=== PATIENT | female | born 1990 | race Caucasian/White ===

== ENCOUNTER 2016-11-05 12:36 | Emergency (ER) | payer MEDICAID, OTHER ==
[~2016-11-05 12:36] MED LIST: PREN1CAP PO
--- NOTE | 2016-11-05 14:15 | PD ---
HPI Chief Complaint Abdominal pain Date Seen: November 05, 2016 Time Seen: 14:00 (Timbo Ansari MD R1) Travel History International Travel<30 Days: No Contact w/Intl Traveler<30Days: No Known Affected Area: No (Timbo Asnari MD R1) History of Present Illness HPI Patient is a 26-year-old at 19 weeks and 2 days who presents with abdominal pain. She reports that she was moving a dresser yesterday. She endorses lifting with her arms and twisting her back. She reports that the pain is in her right upper quadrant, under her ribs. She describes the pain as sharp , coming and going. She reports that the pain is worse with movement, better with lying down, sitting, relaxing. She describes that the pain seems to wrap around to her back within the past few hours. She denies any contractions, leakage of fluid, vaginal bleeding, vaginal discharge. She reports that she hasn 't felt any movement since yesterday, that is normal for her to only feel intermittently as she is so early in her . Since last night, she has had some cold sweats on and off and some vomiting. She describes the vomit is nonbilious nonbloody, transitioning from yellow to white to dry heaving. She reports 5 episodes of vomiting today with associated nausea, associated with the abdominal pain. She reports trying to stay well hydrated today. Patient denies any lower extremity edema, fevers, blurry vision, chest pain, shortness of breath. She denies any dysuria or STDs. She does endorse a headache every day. She reports that she got headaches every day with her last . She also reports occasional presyncope. Her last was a full -term for preeclampsia. Patient gets her care with Elena Beltran. Para: 1 : 2 (Timbo Ansari MD R1) History Past Medical History Narrative Medical Patient reports a history of hypoglycemia with associated syncope prior to getting (Timbo Ansari MD R1) Obstetric History Obstetric History Patient reports that her previous was full term for preeclampsia. (Timbo Ansari MD R1) Past Surgical History Narrative Surgical Patient reports tonsillectomy as a child. (Timbo Ansari MD R1) Family History Narrative Family History Patient reports that her mother was diagnosed with breast cancer at 49 years old. She is currently status post bilateral mastectomy 52 years old. Diabetes in her grandmother. (Timbo Ansari MD R1) Social History Narrative Social History Patient lives at home with and daughter. Alcohol Use: No Tobacco Use: No Substance Abuse: No (Timbo Ansari MD R1) Allergies-Medications (Allergen,Severity, Reaction): Coded Allergies: Lamictal (Verified Allergy, Severe, lesley leonora syndrome, 09/09/16) Morphine (Verified Allergy, Severe, throat swells, 09/09/16) Home Meds Active Scripts Without A W/ Fe Asp G ([facility] 30-1-470 mg)1 Cap Cap1 Tab PO DAILY # 30 BOTTLE Ref 11 Prov:Jaclyn Beltran 09/09/16 Without A W/ Fe Asp G ([facility] 30-1-470 mg)1 Cap Cap Sample #2 Prov:Lawson Luque MD 09/09/16 Review of Systems General / Constitutional: Chills, No: Fever Eyes: No: Blurred Vision HENT: Headaches Cardiovascular: No: Chest Pain or Discomfort, Edema Respiratory: No: Short of Breath Gastrointestinal: Nausea, Vomiting, Abdominal Pain, No: Diarrhea Genitourinary: No: Dysuria Skin: No Rash Neurologic: No: Headache (Timbo Ansari MD R1) Physical Exam Narrative GENERAL: Well-nourished, well-developed patient. SKIN: Warm and dry. HEAD: Normocephalic and atraumatic. EYES: No scleral icterus. No injection or drainage. ENT: No nasal drainage noted. Mucous membranes pink. Airway patent. NECK: Supple, trachea midline. No JVD. CARDIOVASCULAR: Regular rate and rhythm without murmurs, gallops, or rubs. RESPIRATORY: Breath sounds equal bilaterally. No accessory muscle use. ABDOMEN/GI: Abdomen soft, non-tender, bowel sounds present, no rebound, no guarding. There is some tenderness to deep palpation in the right upper quadrant and some right upper quadrant pain with deep palpation of the left upper quadrant. Patient reports some right upper quadrant tightness with right sided straight leg raise. Gravid to 19 weeks size FHT's by Doppler: 135bpm 2 EXTREMITIES: No cyanosis or edema. BACK: Nontender without obvious deformity. No CVA tenderness. NEUROLOGICAL: Awake and alert. Motor and sensory grossly within normal limits. Five out of 5 muscle strength in all muscle groups. Normal speech. (Timbo Ansari MD R1) Data Data Vital Signs Reviewed: Yes (within normal limits) Orders Vital Signs (Adult) .ON ADMISSION (11/05/16 14:01) ^ Labor Status (11/05/16 14:01) ^ Hydration (11/05/16 14:01) Heart Tones (11/05/16 14:01) Heart (11/05/16 14:01) (Timbo Ansari MD R1) MDM Plan Patient is a 26-year-old at 19 weeks and today she presents with right- sided abdominal pain after moving a dresser yesterday. There is also concern for decreased movement. 1. Right-sided abdominal pain most likely musculoskeletal strain/sprain Monitor vital signs Encourage by mouth hydration Recommended [id number] Tylenol, heat or ice as indicated 2. Concern for decreased movement, which per mom is at baseline heart tones by doppler showed heart rate of 135 bpm 2 (Timbo Ansari MD R1) Diagnosis Diagnosis: Primary Impression: Abdominal pain Additional Impression: Normal Disposition: 01 DISCHARGE HOME Condition: Good Collaborating MD Comments Patient seen. I have reviewed assessment and agree with plan of care. (Haylie Puente MD) Timbo Ansari MD R1 November 05, 2016 14:15 Haylie Puente MD November 06, 2016 09:46
== END 2016-11-05 14:21 | disposition home or self-care (01) ==
LOC: HOBED 12:36
DX: R10.9 Unspecified abdominal pain (principal); O36.8120 Decreased fetal movements, second trimester, not applicable or unspecified; Z3A.19 19 weeks gestation of pregnancy
CPT/HCPCS: 99283

== ENCOUNTER 2017-03-24 09:08 | Inpatient (IN) | payer MEDICAID ==
[~2017-03-24] VITALS: Ht 162.6 cm; Wt 97.0 kg
[2017-03-24] VITALS (9 sets, daily range): BP systolic 104–127; BP diastolic 58–73; PULSE 68–87; RESP 18–20; TEMP 97.7–98; O2SAT 87–100
[2017-03-24] MEDS ORDERED: ceFAZolin INJ 1,000 MG VIAL IV ONE (12:00)
[2017-03-24] MEDS ORDERED: OXYTOCIN 10 UNIT/ML AMP IV ONE (12:00)
[2017-03-24] MEDS ORDERED: LIDOCAINE HCL 1% PF 5 ML AMPULE OTHER ONE (12:00)
[2017-03-24] MEDS ORDERED: PROPOFOL 200 MG/20 ML AMP IV ONE (12:00)
[2017-03-24] MEDS ORDERED: MIDAZOLAM HCL 2 MG/2 ML VIAL IV ONE (12:00)
[2017-03-24] MEDS ORDERED: MORPHINE SULFATE PF 5 MG/10 ML VIAL ONE (12:00)
[2017-03-24] MEDS ORDERED: ONDANSETRON HCL 4 MG/2 ML VIAL IV PUSH ONE (12:00)
[2017-03-24] MEDS ORDERED: PHENYLEPH/NS 1000 MCG/10 ML SYR IV ONE (12:00)
[2017-03-24] MEDS ORDERED: KETOROLAC TROMETHAMINE 30 MG/ML (IVP) VIAL IV PUSH ONE (12:00)
[2017-03-24] MEDS ORDERED: ESMOLOL HCL 100 MG/10 ML VIAL IV ONE (12:00)
[2017-03-24] MEDS ORDERED: LACTATED RINGER'S 1000 ML INJ 1,000 ML IV ONE (13:45)
[2017-03-24 14:12] LABS: AUTOMATED NEUTROPHIL # 11.5 TH/MM3 (1.8-7.7); BASOPHIL % 0.2 % (0.0-2.0); EOSINOPHIL # 0.1 TH/MM3 (0-0.4); EOSINOPHIL % 0.7 % (0.0-4.0); HEMATOCRIT 28.8 % (35.0-46.0); HEMO FLAGS DIFF FINAL; LYMPH % 15.9 % (9.0-44.0); LYMPHOCYTE # 2.4 TH/MM3 (1.0-4.8); MEAN CELL VOLUME 93.2 FL (80.0-100.0); MEAN CORPUSCULAR HEMOGLOBIN 31.7 PG (27.0-34.0); MONO % 6.6 % (0.0-8.0); NEUT % 76.6 % (16.0-70.0); PLATELET COUNT 201 TH/MM3 (150-450); RED BLOOD COUNT 3.09 MIL/MM3 (4.00-5.30); RED CELL DISTRIBUTION WIDTH 13.2 % (11.6-17.2); WHITE BLOOD COUNT 15.1 TH/MM3 (4.0-11.0)
[2017-03-24] MEDS ORDERED: LACTATED RINGER'S 1000 ML INJ 1,000 ML IV SCH ×2 (14:15→21:15)
[2017-03-24 14:32] LABS: BACTERIA, URINE MANY /hpf; BLOOD, URINE NEG (NEG); COMMENT (UR) CATH-CULTURE IND; CULTURE IF INDICATED CATH CULTURE IND; GLUCOSE,URINE NEG (NEG); HYALINE CAST, URINE 1 /lpf (RARE); KETONE, URINE 40 mg/dL (NEG); NITRITE,URINE NEG (NEG); SQUAMOUS EPITHELIAL CELL URINE 16 /hpf (0-5); URINE COLOR LIGHT-YELLOW (YELLW/STRAW)
--- NOTE | 2017-03-24 14:37 | PD ---
HPI Chief Complaint HISTORY AND PHYSICAL Repeat Date Seen: Mar 24, 2017 Travel History International Travel<30 Days: No Contact w/Intl Traveler<30Days: No Known Affected Area: No History of Present Illness HPI 26 yo @ 39 weeks with RITESH 03-31-2017 by LMP c/w first trimester US. Uncomplicated . Had elevated GS and normal 3 hour GTT. Patient here for repeat . She had a prior for arrest of descent in 2014. She had pre-eclampsia last with normal BPs this . She was on ASA and TUMS this . She desired a BTL, but now would like to hold. History Past Medical History Narrative Medical Pre-eclampsia 2014 Obstetric History Obstetric History 2014 @ 39 weeks, pre-eclampsia, GBS Past Surgical History Narrative Surgical Tonsillectomy Family History Family History: Negative Social History Alcohol Use: No Tobacco Use: No Substance Abuse: No Allergies-Medications (Allergen,Severity, Reaction): Coded Allergies: lamotrigine (Unverified Allergy, Severe, lesley leonora syndrome, 03/24/17) morphine (Unverified Allergy, Severe, throat swells, 03/24/17) Home Meds Active Scripts Without A W/ Fe Asp G ([facility] 30-1-470 mg) 1 Cap Cap, 1 TAB PO DAILY , #30 BOTTLE 11 Refills Prov:Jaclyn Beltran 09/09/16 Without A W/ Fe Asp G ([facility] 30-1-470 mg) 1 Cap Cap Prov:Lawson Luque MD 09/09/16 Review of Systems Except as stated in HPI: all other systems reviewed are Neg Physical Exam Narrative GENERAL: Well-nourished, well-developed patient. NAD SKIN: Warm and dry. HEAD: Normocephalic and atraumatic. EYES: No scleral icterus. No injection or drainage. ENT: No nasal drainage noted. Mucous membranes pink. Airway patent. NECK: trachea midline. No JVD. CARDIOVASCULAR: Regular rate and rhythm without murmurs, gallops, or rubs. RESPIRATORY: Breath sounds equal bilaterally. No accessory muscle use. ABDOMEN/GI: Abdomen soft, non-tender, no rebound, no guarding Gravid TOCO: No UC FHT's: Category: I Baseline: 130 Reactive: + Variability: mod Decels: [-] EXTREMITIES: No cyanosis or edema. BACK: Nontender without obvious deformity. No CVA tenderness. NEUROLOGICAL: Awake and alert. Motor and sensory grossly within normal limits. Normal speech. Data Data Vital Signs Reviewed: Yes Orders Orders Admit To Inpatient (03/24/17 ) Code Status (03/24/17 13:45) Vital Signs (Adult) .ON ADMISSION (03/24/17 13:45) Activity Oob Ad Essie (03/24/17 13:45) Heart (03/24/17 13:45) Urinary Catheter Management MILLY.Q8H (03/24/17 13:45) ^ Preps (03/24/17 13:45) Scd / Bill / Foot Pump MILLY.QSHIFT (03/24/17 13:45) Diet Npo (03/24/17 Lunch) Lactated Ringer's 1000 Ml Inj (Lr 1000 M (03/24/17 13:45) Lactated Ringer's 1000 Ml Inj (Lr 1000 M (03/24/17 14:15) Citric Acid-Sodium Citrate Liq (Bicitra (03/24/17 15:15) Type And Screen (03/24/17 13:45) Complete Blood Count With Diff (03/24/17 13:45) Urinalysis - C+S If Indicated (03/24/17 13:45) Cefazolin Inj (Ancef Inj) (03/24/17 14:00) Inpatient Certification (03/24/17 ) Specimen To Be Collected PRN (03/24/17 13:45) Group B Strep: Positive Labs Laboratory Tests Test 03/24/17 13:20 White Blood Count 15.1 Red Blood Count 3.09 Hemoglobin 9.8 Hematocrit 28.8 Mean Corpuscular Volume 93.2 Mean Corpuscular Hemoglobin 31.7 Mean Corpuscular Hemoglobin Concent 34.0 Red Cell Distribution Width 13.2 Platelet Count 201 Mean Platelet Volume 9.5 Neutrophils (%) (Auto) 76.6 Lymphocytes (%) (Auto) 15.9 Monocytes (%) (Auto) 6.6 Eosinophils (%) (Auto) 0.7 Basophils (%) (Auto) 0.2 Neutrophils # (Auto) 11.5 Lymphocytes # (Auto) 2.4 Monocytes # (Auto) 1.0 Eosinophils # (Auto) 0.1 Basophils # (Auto) 0.0 CBC Comment DIFF FINAL Differential Comment MDM Medical Record Reviewed: Yes Narrative Course / MDM 39 weeks\ Repeat Reviewed risks of surgery including by not limited to infection, bleeding, PP hemorrhage, need for blood products, scarring or adhesions, injury to surrounding organs such as the bladder or bowl. All questions answered. Mild anemia noted pre-op. GBS positive. Hx of pre-eclampsia, normal BPs this . Plan Repeat Will not proceed with BTL per patient. Cristela Tucker MD Mar 24, 2017 14:37
[2017-03-24] MEDS ORDERED: CITRIC ACID-SODIUM CITRATE LIQ 30 ML UDC PO SCH (15:15)
[2017-03-24] MEDS ORDERED: ACETAMINOPHEN 1000 MG/100 ML 100 ML IV ONE (15:38)
[2017-03-24] MEDS ORDERED: oxyCODONE/ACETAMINOPHEN 5 MG/325 MG TAB PO PRN (16:15)
[2017-03-24] MEDS ORDERED: ACETAMINOPHEN 325 MG TAB PO PRN (16:15)
[2017-03-24] MEDS ORDERED: OXYTOCIN 30 UNITS-500ML PREMIX 500 ML IV ONE (16:15)
[2017-03-24] MEDS ORDERED: SODIUM CHLORIDE 0.9% FLUSH 10 ML FLUSH IV FLUSH PRN (16:15)
[2017-03-24] MEDS ORDERED: ONDANSETRON HCL 4 MG/2 ML VIAL IV PUSH PRN (16:15)
[2017-03-24] MEDS ORDERED: SIMETHICONE 80 MG CHEWABLE TAB PO PRN (16:15)
--- NOTE | 2017-03-24 16:21 | PD.OP ---
cc: Lawson Luque MD Operative Report Date of Surgery: Mar 24, 2017 Preoperative Diagnosis: 39 weeks Prior Desires repeat Postoperative Diagnosis: Same as above Procedure: Repeat Surgeon: Cristela Tucker Toll Transmission Worker(s): Vice President Of Brand Management Operation and Findings: OPERATIVE REPORT PROCEDURE(S) PERFORMED: Repeat Low Transverse Uterine Incision SURGEON: Cristela Tucker MD MEDIA PROFESSIONAL(S): Vice President Of Brand Management ANESTHESIA: Spinal SPECIMEN(S) TO LAB: Cord blood EBL: 500mL UOP: 400ml clear IVF: 1600ml Crystalloid DRAINS: Rock DRESSINGS: Mepilex dressing COMPLICATIONS: None apparent INDICATIONS: 39 weeks, desires repeat OPERATIVE FINDINGS: Normal uterus, ovaries, tubes. Viable female, 3010g, 8/9 DESCRIPTION: The risks, benefits, and indications of the procedure were reviewed with the patient and informed consent was obtained. The patient was taken to the operating room where spinal anesthesia was found to be adequate. She was prepared and draped in the normal sterile fashion in the dorsal supine position with a leftward tilt. A Pfannenstiel skin incision was made with the scalpel over her prior incision. The incision was then carried through the underlying layer of fascia with the Bovie. The fascia was incised in the midline and the incision extended laterally with the Santo scissors. The superior aspect of the fascial incision was grasped with the Nicholas clamps, elevated, and the underlying rectus muscles dissected off bluntly and using the Bovie. In a similar fashion the inferior aspect of this incision was grasped and the rectus muscles dissected off of the fascia. The rectus muscles were in the midline and the peritoneum entered bluntly over a filmy area. The bladder blade was placed and a bladder flap made with the Metzenbaum scissors. A bladder flap created digitally with replacement of the bladder blade. The lower uterine segment was incised in a transverse fashion with the scalpel. The uterine incision was extended laterally digitally. Clear fluid was noted on amniotomy. The infants head and shoulders were delivered without difficulty. The cord was double clamped and cut. The infant was handed to the waiting pediatric team. Cord blood was obtained. The placenta was then removed manually, was intact and grossly normal. The uterus was exteriorized and cleared of all clots and debris. The uterine incision was closed with a running, locking layer of 0-Chromic. The uterus was returned to the abdomen, and inspected again and found to be hemostatic. The gutters were irrigated and cleared of all clots and debris. The peritoneal fascia and muscle bellies were hemostatic. The fascia was re- approximated from the left to the right corner in a running fashion with 0- Vicryl. The subcutaneous space was irrigated and hemostatic. The subcutaneous space was closed with 3-0 Vicryl. The skin was approximated with 3-0 suture. The patient tolerated the procedure well. Sponge, lap and needle counts were correct x 2. Ancef 2gm IVPB was given prior to the procedure. Pitocin 30 units in her regular IV fluids was given after placenta delivery. The patient was taken to the recovery unit in good condition. There were no operative complications. Cristela Tucker MD Department of Obstetrics and Gynecology Cristela Tucker MD Mar 24, 2017 16:21
[2017-03-24] MEDS: oxyCODONE/ACETAMINOPHEN 5 MG/325 MG TAB PO PRN ×2 (16:56→23:10)
[2017-03-24] MEDS ORDERED: OXYTOCIN 30 UNITS-500ML PREMIX 500 ML ONE (17:01)
[2017-03-24] MEDS ORDERED: BUPIVACAINE HCL PF 0.5% 30 ML VIAL ONE (17:06)
[2017-03-24] MEDS ORDERED: DEXAMETHASONE SOD PHOS 4 MG/ML VIAL ONE (17:06)
[2017-03-24] MEDS ORDERED: SODIUM CHLORIDE 0.9% INJ 10 ML ONE (17:07)
[2017-03-24] MEDS ORDERED: SODIUM CHLORIDE 0.9% FLUSH 10 ML FLUSH IV FLUSH SCH (21:00)
[2017-03-24] MEDS ORDERED: KETOROLAC TROMETHAMINE 60 MG/2 ML (IM) VIAL IM SCH (22:00)
[2017-03-24] MEDS: DOCUSATE SODIUM 50 MG/SENNA 8.6 MG TAB PO PRN (23:10)
[2017-03-25 00:30] VITALS: BP 121/80; PULSE 74; RESP 18; TEMP 97.8
[2017-03-25] MEDS ORDERED: OXYTOCIN 30 UNITS-500ML PREMIX 500 ML IV PRN (02:15)
[2017-03-25 05:15] VITALS: BP 121/66; PULSE 85; RESP 18; TEMP 98.4
[2017-03-25] MEDS: oxyCODONE/ACETAMINOPHEN 5 MG/325 MG TAB PO PRN ×4 (05:20→22:34)
[2017-03-25 05:53] LABS: AUTOMATED NEUTROPHIL # 17.4 TH/MM3 (1.8-7.7); BASOPHIL % 0.2 % (0.0-2.0); EOSINOPHIL % 0.1 % (0.0-4.0); HEMATOCRIT 27.9 % (35.0-46.0); HEMO FLAGS DIFF FINAL; LYMPH % 11.4 % (9.0-44.0); LYMPHOCYTE # 2.4 TH/MM3 (1.0-4.8); MEAN CELL VOLUME 92.6 FL (80.0-100.0); MEAN CORPUSCULAR HEMOGLOBIN 31.8 PG (27.0-34.0); MEAN CORPUSCULAR HGB CONC 34.4 % (32.0-36.0); NEUT % 83.3 % (16.0-70.0); PLATELET COUNT 214 TH/MM3 (150-450); RED BLOOD COUNT 3.01 MIL/MM3 (4.00-5.30); RED CELL DISTRIBUTION WIDTH 12.8 % (11.6-17.2); WHITE BLOOD COUNT 20.8 TH/MM3 (4.0-11.0)
[2017-03-25 08:45] VITALS: BP 104/68; PULSE 72; RESP 18; TEMP 98.4
[2017-03-25] MEDS: IBUPROFEN 600 MG TAB PO PRN ×2 (14:26→22:33)
[2017-03-25 15:30] VITALS: BP 139/74; PULSE 86; RESP 18; TEMP 98.5
[2017-03-25] MEDS ORDERED: MEASLES, MUMPS, RUBELLA VACCINE 0.5 ML VIAL SQ ONE (16:00)
[2017-03-25] MEDS ORDERED: DIPHTH/TETANUS/ACEL PERTUSSIS (BOOSTER) 0.5 ML VIAL/PFS IM ONE (16:00)
[2017-03-25] MEDS ORDERED: IBUPROFEN 600 MG TAB PO PRN (16:15)
[2017-03-25 22:00] VITALS: BP 109/63; PULSE 76; RESP 18; TEMP 98.2
[2017-03-25] MEDS: DOCUSATE SODIUM 50 MG/SENNA 8.6 MG TAB PO PRN (22:33)
[2017-03-26] MEDS: oxyCODONE/ACETAMINOPHEN 5 MG/325 MG TAB PO PRN ×2 (04:56→10:25)
[2017-03-26] MEDS: IBUPROFEN 600 MG TAB PO PRN ×2 (04:56→10:24)
[2017-03-26 08:40] VITALS: BP 115/70; PULSE 79; RESP 18; TEMP 98.1
[2017-03-26] MEDS ORDERED: IBUP-232 PO (08:50)
[2017-03-26] MEDS ORDERED: SENN1TAB PO (08:50)
[2017-03-26] MEDS ORDERED: OXYC1TAB63 PO (08:50)
--- NOTE | 2017-03-26 09:00 | HHI.OB ---
Subjective Post Day: 2 Remarks day #2. AFVSS overnight. Denies any fever/chills. Pain minimal. Appetite good. No nausea or vomiting. + BM and flatus. Ambulating well. She is doing well this morning and has no other complaints. Objective Vitals/I&O Vital Signs Date Time Temp Pulse Resp B/P (MAP) Pulse Ox O2 Delivery O2 Flow Rate FiO2 03/25/17 22:00 98.2 76 18 109/63 (78) 03/25/17 15:30 98.5 86 18 139/74 (95) Objective Remarks GENERAL: Well-nourished, well-developed patient. CARDIOVASCULAR: Regular rate and rhythm without murmurs, gallops, or rubs. RESPIRATORY: Breath sounds equal bilaterally. No accessory muscle use. ABDOMEN/GI: Abdomen soft, non-tender. Fundus: Firm, non-tender at umbilicus. Incision site clean/dry/intact. GENITOURINARY: Light to moderate bleeding. EXTREMITIES: No cyanosis or edema, non-tender, without signs of DVT. Medications and IVs Current Medications Medications (Trade) Dose Ordered Sig/Sherman Route Start Time Stop Time Status Last Admin (NS Flush) 2 ml BID IV FLUSH 03/24/17 21:00 (NS Flush) 2 ml UNSCH PRN IV FLUSH 03/24/17 16:15 (Mylicon Chew) 80 mg QID PRN PO 03/24/17 16:15 (Tylenol) 650 mg Q6H PRN PO 03/24/17 16:15 (Percocet 5-325 Mg) 1 tab Q4H PRN PO 03/24/17 16:15 03/25/17 10:46 (Percocet 5-325 Mg) 2 tab Q4H PRN PO 03/24/17 16:15 03/26/17 04:56 (Ailyn-Colace) 2 tab Q12H PRN PO 03/24/17 16:15 03/25/17 22:33 (Zofran Inj) 4 mg Q6H PRN IV PUSH 03/24/17 16:15 (Motrin) 600 mg Q6H PRN PO 03/25/17 13:30 03/26/17 04:56 Assessment/Plan Assessment and Plan 26y/o female who is POD#2 s/p C/S. -Continue routine care. -Percocet and Motrin PRN pain. -Encouraged OOB. Advised pelvic rest for 6 wks. Will need a f/u appt. in 1 wk for incision check. -D/c today per patient request dw Dr. Rei Byrd,Zaira Kidd MD R1 Mar 26, 2017 09:00
[2017-03-26] MEDS: DOCUSATE SODIUM 50 MG/SENNA 8.6 MG TAB PO PRN (10:24)
--- NOTE | 2017-03-26 12:11 | HHI.DCPOC ---
Discharge Care Plan Diagnosis: (1) care following delivery Report Symptoms to Your Doctor -Temperature above 100.5 degrees -Redness, of incision or excessive or foul smelling drainage -Unusual pain or calf pain -Increased vaginal bleeding -Painful or difficulty urinating -Feelings of extreme sadness or anxiety after 2 weeks Goals to Promote Your Health * To prevent worsening of your condition and complications * To maintain your health at the optimal level Directions to Meet Your Goals Take your medications as prescribed Follow your dietary instruction Follow activity as directed Ensure plenty of rest for recovery Drink fluids for hydration Keep your appointments as scheduled Take your immunizations and boosters as scheduled If your symptoms worsen call your PCP, if no PCP go to Urgent Care Center or Emergency Room Smoking is Dangerous to Your Health. Avoid second hand smoke Call the 24-hour crisis hotline for domestic abuse at Jakob Mcneil MD, R2 Mar 26, 2017 12:11
[2017-04-14] MEDS ORDERED: AUGM875T3 PO (09:45)
== END 2017-03-26 14:25 | disposition home or self-care (01) | DRG 766 ==
LOC: H2EB 12:58 → H1EA 17:50
PROVIDERS: ADMIT Obstetrics & Gynecology; ATTEND Obstetrics & Gynecology
PROC: 10D00Z1 Extraction of Products of Conception, Low, Open Approach (ICD-10-PCS; principal; 2017-03-24)
DX: O99.824 Streptococcus B carrier state complicating childbirth (principal); Z37.0 Single live birth; O34.211 Maternal care for low transverse scar from previous cesarean delivery; Z3A.39 39 weeks gestation of pregnancy
CPT/HCPCS: 59025; 81001; 85025; 86850; 86900; 86901; 87086; J0131; J0690; J1100; J1885; J2250; J2274; J2370; J2405; J2590; J3010; J7120